=== PATIENT | female | born 1995 | race Hispanic/Latino ===

== ENCOUNTER 2019-11-12 14:04 | Emergency (ER) | payer SELFPAY ==
[2019-11-12 14:54] LABS: #Basophils 0.1 thou/uL (0.0-0.2); #Eosinphils 0.3 thou/uL (0.0-0.7); #Lymphocytes 2.6 thou/uL (1.20-3.40); #Monocytes 0.6 thou/uL (0.11-0.59); #Neutrophils 5.2 thou/uL (1.40-6.50); %Basophils 1.1 % (0.0-1.0); %Eosinophils 3.9 % (0.0-10.0); %Lymphocytes 29.8 % (21.0-51.0); %Monocytes 6.7 % (0.0-10.0); %Neutrophils 58.5 % (42.0-75.0); Hemoglobin 12.4 g/dL (12.0-16.0); Mean Corpuscular HGB CONC 33.5 g/dL (32.0-36.0); Mean Corpuscular Hemoglobin 26.9 pg (27.0-31.0); Mean Corpuscular Volume 80.1 fL (78.0-98.0); Platelet Count 259 thou/uL (130-400); RBC Distribution Width 14.4 % (11.5-14.5); Red Blood Cell (RBC) Count 4.63 mill/uL (4.20-5.40); White Blood Cell (WBC) Count 8.9 thou/uL (4.8-10.8)
[2019-11-12 16:06] LABS: Bacteria/HPF None Seen HPF (None Seen); Bilirubin Negative (Negative); Blood, Urine 1+ (Negative); Clarity Clear (Clear); Glucose, Urine (Dipstick) Normal (Negative); Leukocyte Negative Leu/uL (Negative); Nitrite Negative (Negative); Protein, Urine (Dipstick) Negative (Neg-Trace); RBC/HPF 0-3 HPF (0-3); Squamous Epithelial 0-3 HPF (0-3); Urobilinogen Normal mg/dL (Less than 2); WBC/HPF 0-3 HPF (0-3)
--- NOTE | 2019-11-12 16:46 | ULT ---
Obstetric sonogram transabdominal and transvaginal imaging with duplex evaluation HISTORY: Vaginal bleeding. Early . FINDINGS: Urinary bladder is decompressed. Uterus is retroverted and 11.1 cm. Gestational sac in the endometrial cavity contains a small yolk sac. No pole visible. Measurements correlate with 5 weeks 5 days gestational size. No free fluid is evident within the pelvis. Follicle the left ovary is 1.9 cm. Good color and spectral Doppler flow within each ovary. IMPRESSION: Very early intrauterine gestational sac measured at 5 weeks 5 days gestational age. pole not yet visible. Retroverted uterus.
[2019-11-14 23:42] LABS: Chlamydia by PCR Not Detected (NotDetected); GC by PCR Not Detected (NotDetected)
== END 2019-11-12 20:00 | disposition home or self-care (01) ==
LOC: ERS 14:04
DX: O20.9 Hemorrhage in early pregnancy, unspecified (principal); O99.511 Diseases of the respiratory system complicating pregnancy, first trimester; J45.909 Unspecified asthma, uncomplicated; O99.341 Other mental disorders complicating pregnancy, first trimester; F41.9 Anxiety disorder, unspecified; Z3A.01 Less than 8 weeks gestation of pregnancy
CPT/HCPCS: 36415; 76856; 81003; 81015; 84702; 85025; 86900; 86901; 87480; 87491; 87510; 87591; 87660

== ENCOUNTER 2019-11-15 08:09 | Emergency (ER) | payer MEDICAID, SELFPAY | END 2019-11-15 12:24 | disposition home or self-care (01) | LOC: ERS 08:09 | DX: O03.4 Incomplete spontaneous abortion without complication (principal); J45.909 Unspecified asthma, uncomplicated; F41.9 Anxiety disorder, unspecified | CPT/HCPCS: 36415; 84702; 99284 ==

== ENCOUNTER 2020-01-25 17:08 | Emergency (ER) | payer MEDICAID ==
--- NOTE | 2020-01-25 17:40 | RAD ---
XR Chest 1 View Portable HISTORY: Chest pain COMPARISON: 11/22/2015 FINDINGS: The heart size is normal. The lungs are well expanded without focal areas of consolidation, pneumothorax or pleural effusions. IMPRESSION: No radiographic evidence of acute cardiopulmonary process.
[2020-01-25 17:42] LABS: #Basophils 0.1 thou/uL (0.0-0.2); #Eosinphils 0.1 thou/uL (0.0-0.7); #Lymphocytes 2.9 thou/uL (1.20-3.40); #Monocytes 0.6 thou/uL (0.11-0.59); #Neutrophils 6.7 thou/uL (1.40-6.50); %Eosinophils 1.1 % (0.0-10.0); %Lymphocytes 27.7 % (21.0-51.0); %Monocytes 5.9 % (0.0-10.0); %Neutrophils 64.2 % (42.0-75.0); Hemoglobin 12.4 g/dL (12.0-16.0); Mean Corpuscular HGB CONC 32.8 g/dL (32.0-36.0); Mean Corpuscular Hemoglobin 25.5 pg (27.0-31.0); Mean Corpuscular Volume 77.9 fL (78.0-98.0); Mean Platelet Volume 9.1 fL (7.4-10.4); Platelet Count 274 thou/uL (130-400); RBC Distribution Width 13.3 % (11.5-14.5); Red Blood Cell (RBC) Count 4.87 mill/uL (4.20-5.40); White Blood Cell (WBC) Count 10.4 thou/uL (4.8-10.8)
[2020-01-25 18:01] LABS: ALT (SGPT) 18 U/L (8-55); AST (SGOT) 17 U/L (5-34); Albumin 4.2 g/dL (3.5-5.0); Alkaline Phosphatase 95 U/L (40-110); Anion Gap 12 mmol/L (10-20); BUN (Urea Nitrogen) 11 mg/dL (7.0-18.7); Bilirubin, Total 0.4 mg/dL (0.2-1.2); Calc. Creatinine Clearance 0 mL/min (70-130); Carbon Dioxide 24 mmol/L (22-29); Chloride 105 mmol/L (98-107); Estimated GFR-MDRD 73; Globulin 3.2 g/dL (2.4-3.5); Glucose 91 mg/dL (70-105); Potassium 3.8 mmol/L (3.5-5.1); Protein, Total 7.4 g/dL (6.0-8.3); Sodium 137 mmol/L (136-145)
[2020-01-25] MEDS ORDERED: Mag-Al 1200 mg/1200 mg/30 ML UDCUP PO SCH (18:30)
[2020-01-25] MEDS ORDERED: Mag-Al 1200 mg/1200 mg/30 ML UDCUP ONE (18:33)
== END 2020-01-25 19:01 | disposition home or self-care (01) ==
LOC: ERS 17:08
DX: O99.611 Diseases of the digestive system complicating pregnancy, first trimester (principal); K21.9 Gastro-esophageal reflux disease without esophagitis; O99.511 Diseases of the respiratory system complicating pregnancy, first trimester; J45.909 Unspecified asthma, uncomplicated; O99.341 Other mental disorders complicating pregnancy, first trimester; F41.9 Anxiety disorder, unspecified; Z3A.01 Less than 8 weeks gestation of pregnancy
CPT/HCPCS: 71045; 80053; 83690; 84702; 85025; 93005

== ENCOUNTER 2020-09-10 08:59 | Outpatient (CLI) | payer OTHER ==
[2020-09-10 18:19] LABS: SARS-CoV-2 MS2 Positive; SARS-CoV-2 N Gene Negative; SARS-CoV-2 S Gene Negative; SARS-CoV-2 by NAA Not Detected (NotDetected); SARS-CoV-2 orf1ab Negative
== END 2020-09-10 09:00 | disposition home or self-care (01) ==
LOC: LABBT 08:59
PROVIDERS: ATTEND Family Medicine
DX: Z20.828 Contact with and (suspected) exposure to other viral communicable diseases (principal)
CPT/HCPCS: 87635; U0003

== ENCOUNTER 2020-09-13 19:15 | Inpatient (IN) | payer OTHER ==
[2020-09-13] MEDS ORDERED: hydrALAZINE 20 MG/ML VIAL SLOW IVP PRN (22:19)
[2020-09-13] MEDS ORDERED: NS / Oxytocin 40 units/1000ml 1,000 ML IV PRN (22:19)
[2020-09-13] MEDS ORDERED: Butorphanol Tartrate 1 MG/ML VIAL SLOW IVP PRN (22:19)
[2020-09-13] MEDS ORDERED: Lidocaine 1% (PF) 30 ML VIAL SC PRN (22:19)
[2020-09-13] MEDS ORDERED: HYDROcodone/Acetaminophen 5/325 mg Tablet PO PRN (22:19)
[2020-09-13] MEDS ORDERED: Carboprost 250 MCG/ML AMP IM PRN (22:19)
[2020-09-13] MEDS ORDERED: Methylergonovine 0.2 MG/ML VIAL IM PRN (22:19)
[2020-09-13] MEDS ORDERED: Diphenoxylate HCl/Atropine Tablet PO PRN (22:19)
[2020-09-13] MEDS ORDERED: Misoprostol 200 MCG TAB PR PRN (22:19)
[2020-09-13] MEDS ORDERED: Ibuprofen 800 MG TAB PO PRN (22:19)
[2020-09-13] MEDS ORDERED: Promethazine HCl 25 MG/ML VIAL IM PRN (22:19)
[2020-09-13 22:43] VITALS: BMI 34.3
[2020-09-13] MEDS ORDERED: NS w/ Oxytocin 30 units 500 ML IVPB SCH ×2 (22:45)
[2020-09-13] MEDS: Misoprostol 100 MCG TAB PO SCH (23:16)
[2020-09-13 23:36] LABS: Hemoglobin 11.3 g/dL (12.0-16.0); Mean Corpuscular HGB CONC 34.6 g/dL (32.0-36.0); Mean Corpuscular Hemoglobin 27.9 pg (27.0-31.0); Mean Corpuscular Volume 80.8 fL (78.0-98.0); Mean Platelet Volume 9.6 fL (7.4-10.4); Platelet Count 220 thou/uL (130-400); RBC Distribution Width 15.6 % (11.5-14.5); Red Blood Cell (RBC) Count 4.06 mill/uL (4.20-5.40); White Blood Cell (WBC) Count 10.5 thou/uL (4.8-10.8)
[2020-09-14 00:11] LABS: HBSAg Index 0.19 S/CO (0-0.99); Hep B Surf Ag Non-Reactive S/CO (NonReactive); Syphilis Antibody Nonreactive (Nonreactive); Syphilis Antibody Index 0.02 S/CO (<1.00 Non-Reactive)
[2020-09-14] MEDS: Misoprostol 100 MCG TAB PO SCH ×2 (02:47→22:29)
[2020-09-14] MEDS: Lactated Ringer's 1,000 ML IV SCH ×3 (11:00→19:51)
[2020-09-14] MEDS ORDERED: Butorphanol Tartrate 1 MG/ML VIAL SLOW IVP PRN (13:05)
[2020-09-14] MEDS ORDERED: HYDROcodone/Acetaminophen 5/325 mg Tablet PO PRN ×2 (13:06→22:38)
[2020-09-14] MEDS ORDERED: Bupivacaine 0.5% 20 ML, fentaNYL Citrate/PF 400 MCG in Sodium Chloride 0.9% 72 ML EPIDURAL SCH (13:15)
[2020-09-14] MEDS ORDERED: Naloxone HCl 0.4 mg/ml Vial IVP PRN ×2 (13:48)
[2020-09-14] MEDS ORDERED: Acetaminophen 325 MG TAB PO PRN (13:48)
[2020-09-14] MEDS ORDERED: Lactated Ringer's 500 ML IV PRN (13:48)
[2020-09-14] MEDS ORDERED: ePHEDrine 50 MG/ML VIAL SLOW IVP PRN (13:48)
[2020-09-14] MEDS ORDERED: diphenhydrAMINE 50 MG/ML VIAL IVP PRN (13:48)
[2020-09-14] MEDS ORDERED: Communication Order-Pharmacy FS SCH (14:00)
[2020-09-14] MEDS ORDERED: Fentanyl 4 mcg/Bupivacaine 0.1% Cassette 100 ML EPIDURAL SCH (14:00)
[2020-09-14] MEDS: Ondansetron PF 4 MG/2 ML Vial IVP PRN ×2 (14:49→21:37)
[2020-09-14] MEDS ORDERED: NS w/ Oxytocin 30 units 500 ML IV SCH (22:38)
[2020-09-14] MEDS ORDERED: hydrALAZINE 20 MG/ML VIAL SLOW IVP PRN (22:38)
[2020-09-14] MEDS ORDERED: Milk Of Magnesia 30 ML UDCUP PO PRN (22:38)
[2020-09-14] MEDS ORDERED: Bisacodyl 10 MG SUPP PR PRN (22:38)
[2020-09-14] MEDS ORDERED: Ondansetron PF 4 MG/2 ML Vial IVP PRN (22:38)
[2020-09-14] MEDS ORDERED: diphenhydrAMINE 25 MG CAP PO PRN (22:38)
[2020-09-14] MEDS ORDERED: Benzocaine-Menthol 82.5 ML CAN TOP PRN (22:38)
[2020-09-14] MEDS ORDERED: Promethazine HCl 25 MG/ML VIAL IM PRN (22:38)
[2020-09-14] MEDS ORDERED: Ibuprofen 800 MG TAB PO SCH (22:45)
[2020-09-14] MEDS ORDERED: Docusate Calcium (SURFAK) 240 MG CAP PO SCH (22:45)
[2020-09-15] MEDS: Lactated Ringer's 1,000 ML IV SCH (00:34)
[2020-09-15] MEDS: Ibuprofen 800 MG TAB PO SCH ×3 (06:37→21:43)
[2020-09-15] MEDS: Ferrous Sulfate 325 MG TAB PO SCH ×2 (08:21→15:30)
[2020-09-15] MEDS: HYDROcodone/Acetaminophen 5/325 mg Tablet PO PRN ×3 (08:22→19:42)
[2020-09-15] MEDS: Docusate Calcium (SURFAK) 240 MG CAP PO SCH ×2 (08:22→21:07)
[2020-09-15] MEDS ORDERED: Adacel (T-DAP) 0.5 ML SYRINGE IM ONE (09:00)
[2020-09-16] MEDS: Ibuprofen 800 MG TAB PO SCH (05:49)
[2020-09-16] MEDS: HYDROcodone/Acetaminophen 5/325 mg Tablet PO PRN (10:01)
[2020-09-16] MEDS: Docusate Calcium (SURFAK) 240 MG CAP PO SCH (10:02)
[2020-09-16] MEDS: Ferrous Sulfate 325 MG TAB PO SCH (10:03)
[2020-09-16 11:22] VITALS: BP 126/62; TEMP 98.1
== END 2020-09-16 14:15 | disposition home or self-care (01) | DRG 807 ==
LOC: L&D 21:03 → 3SW 09-14 23:17
PROVIDERS: ADMIT Family Medicine; ATTEND Family Medicine
PROC: 10E0XZZ Delivery of Products of Conception, External Approach (ICD-10-PCS; principal; 2020-09-14)
PROC: 0KQM0ZZ Repair Perineum Muscle, Open Approach (ICD-10-PCS; 2020-09-14)
PROC: 10907ZC Drainage of Amniotic Fluid, Therapeutic from Products of Conception, Via Natural or Artificial Opening (ICD-10-PCS; 2020-09-14)
PROC: 3E033VJ Introduction of Other Hormone into Peripheral Vein, Percutaneous Approach (ICD-10-PCS; 2020-09-14)
DX: O69.81X0 Labor and delivery complicated by cord around neck, without compression, not applicable or unspecified (principal); Z37.0 Single live birth; O77.0 Labor and delivery complicated by meconium in amniotic fluid; O70.1 Second degree perineal laceration during delivery; Z3A.39 39 weeks gestation of pregnancy
CPT/HCPCS: 36415; 85027; 86780; 86850; 86900; 86901; 87340; J2405; J2590; J3010; J3490